=== PATIENT | female | born 1965 | race Caucasian/White ===

== ENCOUNTER 2018-04-23 10:59 | Emergency (ER) | payer OTHER ==
[2018-04-23 11:02] VITALS: BP 149/85; PULSE 61; RESP 19; TEMP 98.4; O2SAT 97
[2018-04-23 11:03] VITALS: BMI 40.6
[2018-04-23] MEDS ORDERED: Clindamycin 300 MG in Sodium Chloride 0.9% 50 ML IVPB STA (11:58)
[2018-04-23] MEDS ORDERED: Clindamycin in NS 300 MG/50 ML BAG IVPB STA (12:26)
[2018-04-23 12:42] LABS: VENOUS BLOOD GAS BASE EXCESS -0.6 mmol/L (0.0-2.0); VENOUS BLOOD GAS PCO2 43 mmHg (40-60); VENOUS BLOOD GAS PO2 37 mm/Hg (30-55); VENOUS BLOOD PH 7.37 (7.32-7.43)
--- NOTE | 2018-04-23 12:52 | ED PDOC ---
HPI: Dental Pain/Injury Time Seen by Provider: 04/23/18 11:58 Chief Complaint (Nursing): Dental Pain Chief Complaint (Provider): dental pain History Per: Patient (53 y/o female here with right facial swelling noted x 2 days worsening. Has had dental pain on and off and seen by dentist 2 weeks ago but told exam wnl. Denies any fevers/chills.) Past Medical History Reviewed: Historical Data, Nursing Documentation, Vital Signs Vital Signs: Last Vital Signs Temp 98.4 F 04/23/18 11:02 Pulse 61 04/23/18 11:02 Resp 19 04/23/18 11:02 BP 149/85 04/23/18 11:02 Pulse Ox 97 04/23/18 11:02 - Medical History PMH: Arthritis, HTN - Family History Family History: States: No Known Family Hx - Home Medications Home Medications: Ambulatory Orders Medication Instructions Recorded Ibuprofen [Motrin] 600 mg PO TID PRN #30 tab 08/07/15 traMADol [Ultram] 50 mg PO Q8 PRN #12 tab 08/07/15 Clindamycin [Cleocin] 300 mg PO Q6 #28 cap 04/23/18 Ibuprofen [Motrin] 600 mg PO Q8 PRN #21 tab 04/23/18 - Allergies Allergies/Adverse Reactions: Allergies Allergy/AdvReac Type Severity Reaction Status Date / Time Steroids Allergy ANGIOEDEMA Uncoded 08/07/15 20:45 Review of Systems ROS Statement: Except As Marked, All Systems Reviewed And Found Negative ENT: Positive for: Other (facial swelling) Physical Exam - Reviewed Nursing Documentation Reviewed: Yes Vital Signs Reviewed: Yes - Physical Exam Appears: Positive for: Well, Non-toxic, No Acute Distress Head Exam: Positive for: ATRAUMATIC, NORMAL INSPECTION, NORMOCEPHALIC Skin: Positive for: Normal Color, Warm, DRY Eye Exam: Positive for: EOMI, Normal appearance, PERRL ENT: Positive for: Other (no obvious gingival swelling/irritation. Fluctuance and swelling noted right lateral jaw with facial swelling.). Negative for: Normal ENT Inspection Neck: Positive for: Normal, Painless ROM Cardiovascular/Chest: Positive for: Regular Rate, Rhythm Respiratory: Positive for: CNT, Normal Breath Sounds Gastrointestinal/Abdominal: Positive for: Normal Exam, Soft Back: Positive for: Normal Inspection Extremity: Positive for: Normal ROM Neurological/Psych: Positive for: Awake, Alert, Normal Tone - Laboratory Results Result Diagrams: 04/23/18 12:18 04/23/18 12:18 Lab Results: pO2 37 mm/Hg (30-55) 04/23/18 12:36 VBG pH 7.37 (7.32-7.43) 04/23/18 12:36 VBG pCO2 43 mmHg (40-60) 04/23/18 12:36 VBG HCO3 23.7 mmol/L 04/23/18 12:36 VBG Total CO2 26.2 mmol/L (22-28) 04/23/18 12:36 VBG O2 Sat (Calc) 75.7 % (40-65) H 04/23/18 12:36 VBG Base Excess -0.6 mmol/L (0.0-2.0) L 04/23/18 12:36 VBG Potassium 3.9 mmol/L (3.6-5.2) 04/23/18 12:36 Sodium 137.0 mmol/L (132-148) 04/23/18 12:36 Chloride 105.0 mmol/L (98-107) 04/23/18 12:36 Glucose 103 mg/dL (65-105) 04/23/18 12:36 Lactate 1.7 mmol/L (0.7-2.1) 04/23/18 12:36 FiO2 21.0 % 04/23/18 12:36 - ECG O2 Sat by Pulse Oximetry: 97 - Progress ED Course And Treament: clindamycin 300 mg iv x dose Disposition - Clinical Impression Clinical Impression: Dental abscess - Patient ED Disposition Is Patient to be Admitted: No - Disposition Referrals: Michael Pena MD [Primary Care Provider] - Disposition: Routine/Home Disposition Time: 14:03 Condition: FAIR Prescriptions: Clindamycin [Cleocin] 300 mg PO Q6 #28 cap Ibuprofen [Motrin] 600 mg PO Q8 PRN #21 tab PRN Reason: Pain, Moderate (4-7) Instructions: Tooth Abscess (DC) Forms: [facility] ED School/Work Excuse
[2018-04-23 13:54] LABS: BASO % 0.5 % (0.0-2.0); EOS # 0.1 K/uL (0.0-0.7); EOS % 1.5 % (0.0-4.0); HEMOGLOBIN 12.6 g/dL (12.0-16.0); LYMPH # 1.2 K/uL (1.0-4.3); LYMPH % 12.1 % (20.0-40.0); MEAN CELL VOLUME 78.2 fl (81.0-99.0); MEAN CORPUSCULAR HEMOGLOBIN 24.2 pg (27.0-31.0); MEAN CORPUSCULAR HGB CONC 30.9 g/dL (33.0-37.0); MEAN PLATELET VOLUME 7.9 fl (7.2-11.7); MONO # 0.6 K/uL (0.0-0.8); MONO % 6.7 % (0.0-10.0); NEUT # 7.6 K/uL (1.8-7.0); NEUT % 79.2 % (50.0-75.0); RBC 5.21 Mil/uL (3.80-5.20); RED CELL DISTRIBUTION WIDTH 32.7 % (11.5-14.5); WHITE BLOOD COUNT 9.6 K/uL (4.8-10.8)
[2018-04-23 13:59] LABS: ALB/GLOB RATIO 1.1 (1.0-2.1); ALBUMIN 4.2 g/dL (3.5-5.0); ALT/SGPT 30 U/L (9-52); AST/SGOT 40 U/L (14-36); BLOOD UREA NITROGEN 13 mg/dl (7-17); CALCIUM 9.3 mg/dL (8.4-10.2); GFR NON-AFRICAN AMERICAN > 60
[2018-04-23] MEDS ORDERED: Fluorescein 1 mg Ophthalmic Strip OU STA (14:16)
== END 2018-04-23 14:22 | disposition home or self-care (01) ==
LOC: SUPCPDRO 10:59 → H.ER 10:59
DX: K04.7 Periapical abscess without sinus (principal); I10 Essential (primary) hypertension
CPT/HCPCS: 80053; 81025; 82803; 85025; 87040; 96374; 99283; J1885

== ENCOUNTER 2018-07-07 06:55 | Day surgery (SDC) | payer OTHER ==
[2018-07-07 07:49] VITALS: BMI 41.4
[2018-07-07] MEDS ORDERED: Lactated Ringer's 1,000 ML IV ONE (08:18)
[2018-07-07 08:29] LABS: BASO % 0.5 % (0.0-2.0); EOS # 0.2 K/uL (0.0-0.7); EOS % 2.7 % (0.0-4.0); HEMOGLOBIN 12.5 g/dL (12.0-16.0); LYMPH # 2.2 K/uL (1.0-4.3); MEAN CELL VOLUME 84.2 fl (81.0-99.0); MEAN CORPUSCULAR HEMOGLOBIN 27.7 pg (27.0-31.0); MEAN CORPUSCULAR HGB CONC 32.8 g/dL (33.0-37.0); MEAN PLATELET VOLUME 7.7 fl (7.2-11.7); MONO # 0.7 K/uL (0.0-0.8); NEUT # 5.9 K/uL (1.8-7.0); NEUT % 64.8 % (50.0-75.0); RBC 4.53 Mil/uL (3.80-5.20); RED CELL DISTRIBUTION WIDTH 18.6 % (11.5-14.5); WHITE BLOOD COUNT 9.1 K/uL (4.8-10.8)
[2018-07-07 08:40] LABS: BLOOD UREA NITROGEN 15 mg/dl (7-17); CALCIUM 8.7 mg/dL (8.4-10.2); GFR NON-AFRICAN AMERICAN > 60
[2018-07-07] MEDS ORDERED: Propofol 10 mg/ml Inj (20 ML) ONE (09:04)
[2018-07-07] MEDS ORDERED: Midazolam 2 MG/2 ML VIAL ONE (09:04)
[2018-07-07] MEDS ORDERED: Lidocaine 2% MPF (5 ml) Inj ONE (09:04)
[2018-07-07] MEDS ORDERED: ePHEDrine 50 mg/ml Inj ONE (09:46)
[2018-07-07] MEDS ORDERED: HYDROmorphone 0.5 mg/0.5 ml ISec IVP PRN (10:18)
[2018-07-07] MEDS ORDERED: Lactated Ringer's 1,000 ML IV SCH (10:30)
[2018-07-07 11:40] VITALS: RESP 18
--- NOTE | 2018-07-07 11:47 | CARD ---
APPROVED REPORT Date of service: 07/07/2018 EKG Measurement Heart [id number] <Conclusion> Sinus bradycardia Otherwise normal ECG
[2018-07-07 13:02] VITALS: BP 116/62; PULSE 68; TEMP 98; O2SAT 97
--- NOTE | 2018-07-09 02:42 | OP ---
PROCEDURE DATE: 07/07/2018 PREOPERATIVE DIAGNOSIS: Abnormal uterine bleeding. POSTOPERATIVE DIAGNOSIS: Abnormal uterine bleeding, pending pathology. SURGEON: Froilan Gibson MD PROCEDURE: Hysteroscopy with MyoSure and dilatation and curettage. ESTIMATED BLOOD LOSS: Minimal. DESCRIPTION OF THE PROCEDURE: With the patient in dorsal lithotomy position under general anesthesia, the patient was prepped and draped in the usual sterile manner. A weighted speculum was placed in the posterior vagina. The cervix was grasped with single tooth tenaculum after the bladder was emptied with straight catheter and cervix was dilated with graded dilator. After this was done, hysteroscope was introduced and polypoid lesions were observed, also some hypoplastic tissues and somewhat possible adhesions. The procedure was done without any complication and instruments were removed from the vagina. The single-tooth tenaculum was removed from the cervix. The bleeding was minimal and the bleeding was physically stopped. Specimen was then sent to pathology. After this was done, the patient was in satisfactory condition on her way to recovery room. Froilan Gibson MD
== END 2018-07-07 13:43 | disposition home or self-care (01) ==
LOC: H.OPSURG 06:55
PROVIDERS: ATTEND Specialist
DX: N93.9 Abnormal uterine and vaginal bleeding, unspecified (principal); N84.0 Polyp of corpus uteri; I10 Essential (primary) hypertension
CPT/HCPCS: 36415; 58558; 80048; 85025; 88305; 93005; J2250; J2405; J2704; J2765; J3010; J7030; J7120